=== PATIENT | female | born 1960 | race Caucasian/White ===

== ENCOUNTER 2023-04-21 10:34 | Outpatient (NON) | payer MEDICARE, SELFPAY ==
[2023-04-21 11:15] LABS: Basophils Percent Auto 0.4 % (0.2-1.2); Eosinophils Absolute Auto 0.2 K/mm3 (0-0.3); Eosinophils Percent Auto 3.8 % (0-4.4); Hematocrit 34.3 % (37.0-47.0); Immature Granulocyte Absolute 0.02 K/mm3 (0.00-0.031); Immature Granulocyte Percent A 0.4 % (0-0.5); Lymphocytes Absolute Auto 1.03 K/mm3 (0.9-3.2); Lymphocytes Percent Auto 18.6 % (18.3-44.2); Mean Corpuscular HGB Conc 29.2 g/dl (32-36); Mean Corpuscular Hemoglobin 28.9 pg (26-34); Mean Corpuscular Volume 99.1 fl (80-100); Mean Platelet Volume 10.6 fl (7.4-10.4); Monocytes Absolute Auto 0.5 K/mm3 (0.1-0.6); Monocytes Percent Auto 8.1 % (2.6-8.5); Neutrophils Absolute Auto 3.8 K/mm3 (1.3-6.7); Neutrophils Percent Auto 68.7 % (45.5-73.1); Platelet Count Result 279 k/mm3 (150-375); Red Blood Count 3.46 M/mm3 (4.2-5.4); Red Cell Distribution Width 15.6 % (11.5-14.5); White Blood Count 5.5 K/mm3 (4.5-10.0)
[2023-04-21 11:26] LABS: Alanine Aminotransferase 12 U/L (6-35); Albumin Level 4.2 g/dL (3.5-5.1); Alkaline Phosphatase 101 U/L (38-126); Anion Gap 9 mmol/L (8-16); Aspartate Amino Transferase 25 U/L (14-36); Bilirubin,Total 0.6 mg/dL (0.2-1.3); Blood Urea Nitrogen 63 mg/dL (7-17); Calcium 9.1 mg/dL (8.4-10.2); Carbon Dioxide 23 mmol/L (22-30); Chloride 104 mmol/L (98-107); Cholesterol 159 mg/dL (0-200); Estimated Glomerular Filt Rate 30; Glucose 151 mg/dL (65-110); HDL Direct 32 mg/dL; Potassium 5.3 mmol/L (3.4-5.0); Sodium 136 mmol/L (137-145); Triglycerides 120 mg/dL (<150)
[2023-04-21 11:36] LABS: LDL Cholesterol Direct 83 mg/dL
[2023-04-21 11:46] LABS: Platelet Estimate Adequate (Adequate); Poikilocytosis 1+ (NORMAL); Schistocytes None Seen (NORMAL)
[2023-04-21 12:05] LABS: Free T4 Free Thyroxine 1.59 ng/mL (0.78-2.19)
[2023-04-21 12:10] LABS: Hemoglobin A1C 7.5 % (<5.7)
== END 2023-04-21 10:35 | disposition home or self-care (01) ==
LOC: HOME HLTH 10:41
PROVIDERS: PCP Family Medicine; Visit Provider Internal Medicine
DX: E11.22 Type 2 diabetes mellitus with diabetic chronic kidney disease (principal); E11.42 Type 2 diabetes mellitus with diabetic polyneuropathy; E11.319 Type 2 diabetes mellitus with unspecified diabetic retinopathy without macular edema; E11.51 Type 2 diabetes mellitus with diabetic peripheral angiopathy without gangrene; E66.01 Morbid (severe) obesity due to excess calories; E78.2 Mixed hyperlipidemia; I11.0 Hypertensive heart disease with heart failure; F33.40 Major depressive disorder, recurrent, in remission, unspecified; I48.0 Paroxysmal atrial fibrillation; I73.9 Peripheral vascular disease, unspecified; J45.30 Mild persistent asthma, uncomplicated; Z86.39 Personal history of other endocrine, nutritional and metabolic disease; Z89.511 Acquired absence of right leg below knee; Z89.519 Acquired absence of unspecified leg below knee
CPT/HCPCS: 80053; 80061; 83036; 84439; 84443; 85025

== ENCOUNTER 2023-04-22 16:04 | Outpatient (NON) | payer MEDICARE, SELFPAY ==
[2023-04-22 18:27] LABS: Appearance Urine Clear (Clear); Bacteria Urine None Seen /hpf; Bilirubin Urine Negative (Negative); Blood Urine Negative (Negative); Color Urine Yellow (Yellow); Glucose Urine UA Negative (Negative); Ketones Urine Negative (Negative); Leukocyte Esterase Ur Negative LEU/UL (NEGATIVE); Nitrate Urine Negative (Negative); Non Pathogenic Casts 0-2; Protein Urine 2+ mg/dL (Negative); RBC Urine 0-2 /hpf (0-2); Specific Grav Ur 1.015 (1.001-1.035); Squamous Epithelial Cell Urine None seen /hpf (Few); Urobilinogen Urine 0.2 mg/dL (<2.0); WBC Urine 0-5 /hpf (0-3)
[2023-04-22 18:30] LABS: Add Urine Microscopic? YES
== END 2023-04-22 16:05 | disposition home or self-care (01) ==
LOC: HOME HLTH 16:06
PROVIDERS: PCP Family Medicine; Visit Provider Internal Medicine
DX: E78.2 Mixed hyperlipidemia (principal); E11.22 Type 2 diabetes mellitus with diabetic chronic kidney disease; E11.319 Type 2 diabetes mellitus with unspecified diabetic retinopathy without macular edema; E11.42 Type 2 diabetes mellitus with diabetic polyneuropathy; E11.51 Type 2 diabetes mellitus with diabetic peripheral angiopathy without gangrene; I48.0 Paroxysmal atrial fibrillation; I73.9 Peripheral vascular disease, unspecified; I11.0 Hypertensive heart disease with heart failure; I50.42 Chronic combined systolic (congestive) and diastolic (congestive) heart failure; F33.40 Major depressive disorder, recurrent, in remission, unspecified; J45.30 Mild persistent asthma, uncomplicated; E66.01 Morbid (severe) obesity due to excess calories; Z89.511 Acquired absence of right leg below knee; Z89.519 Acquired absence of unspecified leg below knee; Z86.39 Personal history of other endocrine, nutritional and metabolic disease
CPT/HCPCS: 81001

== ENCOUNTER 2024-09-02 14:15 | Outpatient (RCR) | payer MEDICARE, SELFPAY ==
--- NOTE | 2024-07-01 15:44 | OPREHPOC ---
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 PT Problem 3 PT Problem #3 Impaired Range of Motion PT Goal 1 Goal / Goal Update increase ROM, for pt to be able to wear R LE prosthesis and stand with L ankle boot/shoe intact : in supine: 1* R hip extension (-10') 2* R knee extension (-10') 3* L hip extension (-10') 4* L knee extension (-10') Target Visit 10
--- NOTE | 2024-07-01 15:44 | PTOPEVAL1 ---
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 have been fitted with a L foot and ankle brace from [facility], but not have it yet; go back next week to get it finalized. have had PT in the past, at another facility was d/c from there in Mar 2024; was ill and hospitalized and released Jul 2023, problems since then with tightness and decreased mobility; Activity: lives with her friend who has w/c ramp; her home has 5 stairs, with one side railing and she cannot get into her home; uses w/c for mobility; is on dialysis 1x/wk for cardiac fluid removal; Goal: walk, do stairs and return to her own home Reported Pain Level Pain Score Self Report Additional Pain Score Comments pain range in the past week 1-8/10; medial and lateral L ankle and foot; toes have wounds and some drainage; previous heel wound was healed and now reopened; Assessment PT Clinical Summary Kayla has the diagnosis of L foot varus. 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 LE functional scale is 95% limitation in activity level. With the evaluation: she has flexion contractures over R & L hip and knee, and L ankle contracture in inversion and PF position ( DF ROM was not measured during eval); decreased strength of R and L LE's and decreased mobility and transfer skills. Skilled PT services are indicated for therapeutic exercises and activity to increase her mobility, flexibility of LE's and progress to standing and walking as able. Education for HEP, gait and balance skills. Plan of Care Interventions Gait Training,Manual Therapy,Mechanical Traction, Patient/Caregiver Education,Prosthetic Training, Therapeutic Activities,Therapeutic Exercise PT Services Indicated Yes Treatment Frequency and 1-2x/wk for 10 visits Duration These treatments will address the objective and functional deficits as defined above. The patient will be advanced safely and appropriately in order for the patient to progress towards his/her prior level of function. Additional exercises will be introduced and as well as a comprehensive home exercise program upon discharge, if needed, ?to ensure carryover of functional gains achieved in the clinic. This treatment plan has been reviewed and agreement upon by the patient.
--- NOTE | 2024-07-26 11:47 | PCPTNOTE ---
Pt canceled due to weather.
--- NOTE | 2024-07-27 15:23 | PCPTNOTE ---
Pt canceled due to needing Dialysis.
--- NOTE | 2024-07-29 15:00 | PCPTNOTE ---
Pt no showed as she is in the hospital.
--- NOTE | 2024-08-05 15:20 | OPREHPOC ---
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 08-05-24 progress goal not addressed--unable to stand--not have ankle brace yet and prosthesis giving her pain/ not wearing continue towards goal Target Visit 14 PT Problem 3 PT Problem #3 Impaired Range of Motion PT Goal 1 Goal / Goal Update increase ROM, for pt to be able to wear R LE prosthesis and stand with L ankle boot/shoe intact : in supine: 1* R hip extension (-10') 2* R knee extension (-10') 3* L hip extension (-10') 4* L knee extension (-10') 08-05-24 progress goals not met continue towards Target Visit 14
--- NOTE | 2024-08-05 15:21 | PTOPPROG ---
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 PAIN: range in the L ankle in the past week 3-04/14 awaiting [employer] appt for brace for L ankle/ foot; Assessment PT Clinical Summary Kayla has received 4 PT sessions, from July 01 to today. She called/canceled 3 appointments due to illness. She has not yet received the L ankle/foot brace from [facility]. And has not been wearing her R prosthesis due to pain in leg and prior to that, was due to swelling of her R leg. She continues to use the wheelchair for all of her mobility. And transfers indep at home from w[facility]. The PT sessions have been working on increasing the strength and flexibility of her R and L hips and knees, to prepare for standing. progression to standing once her L ankle/foot brace is received and she can tolerate wearing her R BK prosthesis. Self assessment with LE functional scale rating from 95 to 76% limitation in activity level. R and L hip and knee extension ranges are the same or 5' less motion. Skilled PT to continue treatment, with progression of strengthening of LE's and mobility progression to standing when L ankle/foot brace received and wearing her R LE prosthesis is tolerated. Plan of Care Interventions Gait Training,Manual Therapy,Mechanical Traction, Patient/Caregiver Education,Prosthetic Training, Therapeutic Activities,Therapeutic Exercise PT Services Indicated Yes Treatment Frequency and 1-2x/wk for 10 visits Duration These treatments will address the objective and functional deficits as defined above. The patient will be advanced safely and appropriately in order for the patient to progress towards his/her prior level of function. Additional exercises will be introduced and as well as a comprehensive home exercise program upon discharge, if needed, ?to ensure carryover of functional gains achieved in the clinic. This treatment plan has been reviewed and agreement upon by the patient.
--- NOTE | 2024-08-17 11:04 | PCPTNOTE ---
Pt canceled due to wether
--- NOTE | 2024-10-03 08:52 | PCPTNOTE ---
This treatment is being continued on visit number [id number] Please see documentation on both accounts to view progress. Completed interventions, outcomes, and problems have been marked as Inactive to facilitate the copying of the Care plan routine for recurring accounts.
== END 2024-09-29 23:59 | disposition home or self-care (01) ==
LOC: ANHPT 14:15
PROVIDERS: PCP Family Medicine; Visit Provider Podiatrist Foot & Ankle Surgery
DX: M21.172 Varus deformity, not elsewhere classified, left ankle (principal)
CPT/HCPCS: 97110; 97140; 97162; 97530